=== PATIENT | female | born 1940 | race Two or more races ===

== ENCOUNTER → 2022-12-01 | Day surgery (SDC) | payer OTHER | END | disposition home or self-care (01) | LOC: ADM 11-25 13:00 → AMB-ENDOS 06:23 | PROVIDERS: ATTEND Colon & Rectal Surgery | DX: D12.0 Benign neoplasm of cecum (principal); Z86.010 Personal history of colon polyps; K57.30 Diverticulosis of large intestine without perforation or abscess without bleeding; K64.8 Other hemorrhoids; Z20.822 Contact with and (suspected) exposure to COVID-19 ==